=== PATIENT | male | born 1940 | race Caucasian/White ===

== ENCOUNTER 2020-01-29 08:53 | Observation (INO) | payer OTHER ==
[2020-01-24 11:06] LABS: BASOPHILS % 0.3 % (0.0-1.0); EOSINOPHILS # (AUTO) 0.5 (0.0-0.4); HEMATOCRIT 39.5 % (38.2-49.6); LYMPHOCYTES # (AUTO) 1.6 (1.0-3.2); LYMPHOCYTES % 17.7 % (18.0-39.1); MEAN CORPUSCULAR HGB CONC 32.9 g/dL (31-35); MONOCYTES % 10.8 % (4.4-11.3); NEUTROPHILS # (AUTO) 5.6 (2.1-6.9); NEUTROPHILS % 64.1 % (38.7-80.0); PLATELET COUNT 184 x10e3/uL (140-360); RED CELL DISTRIBUTION WIDTH 14.8 % (11.7-14.4)
[~2020-01-29] VITALS: Ht 167.6 cm; Wt 77.1 kg
[~2020-01-29 08:53] MED LIST: AMLODIPINE BESY10 MG PO; ATORVASTATIN CA20 MG PO; DITROPAN XL10 MG PO; IRON PO; METOPROLOL SUCC25 MG PO; MONTELUKAST SOD10 MG PO; PANTOPRAZOLE SO40 MG PO; SUCRALFATE1 GM PO; WARFARIN SODIUM3 MG PO
[2020-01-29 10:25] LABS: INR 1.3; PROTHROMBIN TIME 16.8 seconds (11.9-14.5)
[2020-01-29 10:26] LABS: PARTIAL THROMBOPLASTIN TIME 35.9 seconds (23.8-35.5)
[2020-01-29] MEDS ORDERED: LIDOCAINE HCL 2% LOCAL INJ 5 ML SDV VIAL INJ ONE (11:58)
[2020-01-29] MEDS ORDERED: PROPOFOL IV EMULSION 10 MG/ML 20 ML VIAL ONE (11:58)
[2020-01-29] MEDS ORDERED: GLUCAGON FOR INJ 1 MG VIAL ONE (11:58)
[2020-01-29 17:07] VITALS: BP 115/81
[2020-01-29 17:21] VITALS: BP 115/81
--- NOTE | 2020-01-29 17:24 | NUR ---
patient received via . see admit assess. sinus lex. Dr Casas and Dr Barr here to see patient. vitals stable with no distress.
--- NOTE | 2020-01-29 19:00 | NUR ---
RECEIVED BEDSIDE SHIFT REPORT FROM PREVIOUS NURSE. CALL LIGHT WITHIN REACH. PATIENT IN BED.
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
[2020-01-29 20:00] VITALS: BP 114/66
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
[2020-01-29 20:19] VITALS: BP 115/81
[2020-01-29 21:36] VITALS: BP 114/66
[2020-01-30] VITALS: BP 115/74
[2020-01-30 04:00] VITALS: BP 114/66
[2020-01-30 05:25] LABS: BASOPHILS % 0.5 % (0.0-1.0); EOSINOPHILS # (AUTO) 0.5 (0.0-0.4); EOSINOPHILS % 7.4 % (0.0-6.0); HEMATOCRIT 35.6 % (38.2-49.6); LYMPHOCYTES # (AUTO) 1.1 (1.0-3.2); LYMPHOCYTES % 17.5 % (18.0-39.1); MEAN CORPUSCULAR HEMOGLOBIN 31.4 pg (28-32); MEAN CORPUSCULAR HGB CONC 33.7 g/dL (31-35); MEAN CORPUSCULAR VOLUME 93.2 fL (81-99); MONOCYTES # (AUTO) 0.8 (0.2-0.8); MONOCYTES % 12.4 % (4.4-11.3); NEUTROPHILS # (AUTO) 3.8 (2.1-6.9); NEUTROPHILS % 61.4 % (38.7-80.0); PLATELET COUNT 176 x10e3/uL (140-360); RED BLOOD COUNT 3.82 x10e6/uL (4.3-5.7); RED CELL DISTRIBUTION WIDTH 14.7 % (11.7-14.4)
[2020-01-30 05:57] LABS: ALANINE AMINOTRANSFERASE 12 IU/L (0-55); ALBUMIN 3.4 g/dL (3.5-5.0); ALBUMIN/GLOBULIN RATIO 1.3 (0.8-2.0); ALKALINE PHOSPHATASE 80 IU/L (40-150); BLOOD UREA NITROGEN 15 mg/dL (7-26); BUN/CREATININE RATIO 15 (6-25); CALCIUM 8.4 mg/dL (8.4-10.2); CARBON DIOXIDE 24 mmol/L (22-29); CHLORIDE 107 mmol/L (98-107); CREATININE, SERUM 1.02 mg/dL (0.72-1.25); EST GLOMERULAR FILTRATION RATE > 60 ML/MIN (60-); GLUCOSE 92 mg/dL (74-118); SODIUM 139 mmol/L (136-145)
[2020-01-30 06:10] LABS: CHOL/HDL RATIO 5.3 (3.9-4.7)
--- NOTE | 2020-01-30 07:12 | NUR ---
GAVE BEDSIDE SHIFT REPORT TO ONCOMING NURSE. CALL LIGHT WITHIN REACH. PATIENT IN BED. HOURLY ROUNDING PERFORMED.
[2020-01-30] MEDS ORDERED: SUCRALFATE 1 GM TAB PO SCH (07:30)
[2020-01-30 08:19] VITALS: BP 125/68
[2020-01-30 08:27] VITALS: BP 125/68
[2020-01-30] MEDS ORDERED: ATORVASTATIN 20 MG TAB PO SCH (09:00)
[2020-01-30] MEDS ORDERED: PANTOPRAZOLE SOD 40 MG TABEC PO SCH (09:00)
[2020-01-30] MEDS ORDERED: MONTELUKAST SODIUM 10 MG TAB PO SCH (09:00)
[2020-01-30] MEDS ORDERED: AMLODIPINE BESYLATE 10 MG TAB PO SCH (09:00)
--- NOTE | 2020-01-30 14:43 | NUR ---
Right hand IV discontinued. No signs of infiltration noted. 2x2 gauze and coban placed. Taken via wheelchair to personal car. Accompanied by . AAOx3 to time, person, place. Respirations even and unlabored. Discharge instructions and all personal belongings taken with patient.
--- NOTE | 2020-02-04 20:38 | NUR ---
Discharge Summary Patient: Isak Fleming Admission date: 01/29/2020 Discharge date: 01/30/2020 Attending physician: Geovany Barr MD Consultation: Dr David Casas, Cardiology Admitting Diagnosis: symptomatic bradycardia, coronary artery disease s/p PCI 2002, Hypertension, Hyperlipidemia, history of stroke with right sided weakness, GERD, systolic congestive heart failure, mild aortic valve sclerosis without stenosis, mild mitral regurgitation, mild tricuspid regurgitation Discharge Diagnosis: symptomatic bradycardia, coronary artery disease s/p PCI 2002, Hypertension, Hyperlipidemia, history of stroke with right sided weakness, GERD, systolic congestive heart failure, mild aortic valve sclerosis without stenosis, mild mitral regurgitation, mild tricuspid regurgitation Procedures: None Hospital Course: Mr Fleming is an 79 yo M with PMH significant for CAD s/p PCI 2002 with stents, CVA with residual right sided weakness 2011, HTN, HLD, and GERD who is admitted for bradycardia after outpatient EGD. Patient presented to [facility] for elec tive outpatient EGD and colonoscopy to evaluate for nausea and vomiting symptoms. After procedure, patient became bradycardic to 47 with dizziness in PACU. Dr Casas was consulted for evaluation and decision was made to admit patient for observation. He takes Metoprolol 50mg and states he took his normal dose this morning and denies possibly taking an additional dose. Upon admission to the floor patient was no longer feeling dizzy. Monitored overnight on telemetry with no arrythmias noted and his bradycardia resolved. We held beta annamaria therapy during admission. TSH normal. TTE noted depressed EF 40-45% with mild aortic valve sclerosis without stenosis, mild mitral regurgitation, mild tricuspid regurgitation. His bradycardia resolved and it is thought this episode was caused by anesthesia. Patient discharged with instructions to follow up wit his head inspector, PCP, and with his GI physician. Physical Exam: Vitals: Temp: 98.4P:99 BP: 125/68RR: 20SpO2: 95% General Appearance: The patient is alert, oriented and in no acute distress. Appears euvolemic. Skin: Warm and hydrated without any rash. HEENT: Head is normocephalic, atraumatic. Nontender sinuses. Pupils are equal and reactive. The nares are patent. Oropharynx is moist and clear without lesions. Neck: Supple without lymphadenopathy. No JVD. Thyroid NV/REPORT WRITER Heart / Cardiovascular: Regular rate and rhythm. Normal S1 and S2 without S3/S4. No murmurs, rubs or gallops. Peripheral pulses symmetric +2. Respiratory / Chest: No crackles or wheezes are heard. Symmetric breath sounds. Preserved chest expansion. Abdomen: Soft, nontender, nondistended with good bowel sounds heard. No clinical organomegaly. Renal: There is no costovertebral angle tenderness. Extremities: Without cyanosis, clubbing or edema. Preserved ROM. Neurological: Gross nonfocal. Patient oriented x 3. Cranial nerves II - XII Grossly intact. +slight weakness to RUE and RLE; normal strength on left side Discharge medications: see medication reconciliation Discharge plan: Condition on discharge: good Activity: as tolerated Diet: cardiac diet Follow-up: follow up with your PCP, GI, and cardiology Time spent on discharge: 45 minutes
--- OUTSIDE RECORDS SUMMARY | 2020-02-07 17:16 | XMS REPORT | Continuity of Care Document ---
Author Author [facility] Organization [facility] Address [address] [place] [address] Phone Unavailable Care Team Providers Care Software Sales Manager Name Role Phone Alexa GOULD, Adelso PCP Problems Condition Name Condition Details Condition Category Status Onset Date Resolution Date Last Treatment Date Treating Clinician Comments Source Acute cystitis without hematuria Acute cystitis without hematuri a Disease Active 2018-12-29 00:00:00 [place] [facility] Pneumonia Pneumonia Disease Active 2018-12-29 00:00:00 Natan Delgado Allergies, Adverse Reactions, Alerts Allergy Name Allergy Type Status Severity Reaction(s) Onset Date Inacti ve Date Treating Clinician Comments Source Ciprofloxacin Propensity to adverse reactions to drug Active GI Intolerance 2018-12-26 00:00:00 Vomiting [place] [facility] Penicillin Propensity to adverse reactions to drug Active Hives 2017-05-23 00:00:00 [facility] Promethazine Propensity to adverse reactions to drug Active 2017-05-23 00:00:00 hallucinations [place] [facility] Family History Family Member Diagnosis Comments Start Date Stop Date Source Natural father Cancer [place] [facility] Natural mother Diabetes [place] [facility] Social History Social Habit Start Date Stop Date Quantity Comments Source History of tobacco use Current smoker Natan Delgado Sex Assigned At [facility] ro[place] Religion Cigarettes smoked current (pack per day) - Reported 00:00:00 2018-12-26 00:00:00 Natan Delgado Cigarette pack-years 2018-12-26 00:00:00 2018-12-26 00:00:00 Natan Delgado Tobacco use and exposure 2018-12-26 00:00:00 2018-12-26 00:00:00 Form er user Natan Delgado Alcohol intake 2018-12-26 00:00:00 2018-12-26 00:00:00 Current non-drinker of alcohol (finding) Natan Delgado Alcohol Comment 2017-05-26 00:00:00 2017-05-26 00:00:00 history Natan Delgado Smoking Status Start Date Stop Date Source Former smoker 2018-12-26 00:00:00 2018-12-26 00:00:00 Natan Delgdao Medications Ordered Medication Name Filled Medication Name Start Date Stop Da te Current Medication? Ordering Clinician Indication Dosage Frequency Signature (SIG) Comments Components Source ferrous sulfate 325 (65 FE) MG tablet 2018-12-29 10:33:48 Y es 325mg QD Take 325 mg by mouth daily with breakfast. Natan Delgado tamsulosin (FLOMAX) 0.4 mg capsule 2018-12-29 10:33:48 Yes .4mg QD Take 0.4 mg by mouth daily. Natan Delgado cyclobenzaprine (FLEXERIL) 10 mg tablet 2018-12-29 10:33:48 Yes 10mg Q.[id number] Take 10 mg by mouth 3 (three) times a da y as needed for muscle spasms. Natan Delgado acetaminophen-codeine (TYLENOL WITH CODEINE #3) 300-30 mg pe r tablet 2018-12-29 10:33:48 Yes acute pain 1{tbl} Q4H Take 1 tablet by mouth every 4 (four) hours as needed .Acute Pain. Nigel Delgado pantoprazole (PROTONIX) 40 MG EC tablet 2017-05-16 00:00:00 Yes 40mg QD Take 40 mg by mouth daily. Natan Angeles odangel sucralfate (CARAFATE) 1 gram tablet 2017-05-09 00:00:00 Yes 1g Q.5D Take 1 g by mouth 2 (two) times a day. Rajinder Delgado montelukast (SINGULAIR) 10 mg tablet 2017-05-04 00:00:00 Ye s 10mg QD Take 10 mg by mouth daily. Natan crawley warfarin (COUMADIN) 5 MG tablet 2017-05-03 00:00:00 Yes 5mg QD Take 5 mg by mouth daily. Natan Delgado metoprolol succinate XL (TOPROL-XL) 50 mg 24 hr tablet 2017-03-22 00:00:00 Yes 25mg QD Take 25 mg by mouth daily. Natan Delgado amLODIPine (NORVASC) 10 mg tablet 2017-03-22 00:00:00 Yes 10mg QD Take 10 mg by mouth daily. Natan Delgado atorvastatin (LIPITOR) 20 MG tablet 2017-02-15 00:00:00 Yes 20mg QD Take 20 mg by mouth nightly. Natan dumont Procedures This patient has no known procedures. Plan of Care Planned Activity Planned Date Details Comments Source Future Scheduled Test 2019-11-03 00:00:00 INFLUENZA VACCINE [code = INFLUENZA VACCINE] Natan Delgado Future Scheduled Test 2004-12-19 00:00:00 65+ PNEUMOCOCCAL V ACCINE (1 of 1 - PPSV23) [code = 65+ PNEUMOCOCCAL VACCINE (1 of 1 - PPSV23)] Natan Delgado Future Scheduled Test 1989-12-19 00:00:00 SHINGLES VACCINES (#1) [code = SHINGLES VACCINES (#1)] Natan Delgado Results This patient has no known results.
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
== END 2020-01-30 14:43 | disposition home or self-care (01) ==
LOC: OR 08:53 → PACU V 14:36 → MED/SURG 16:25
PROVIDERS: ADMIT Internal Medicine; ATTEND Internal Medicine
DX: Z12.11 Encounter for screening for malignant neoplasm of colon (principal); R00.1 Bradycardia, unspecified; I25.10 Atherosclerotic heart disease of native coronary artery without angina pectoris; I25.2 Old myocardial infarction; I69.351 Hemiplegia and hemiparesis following cerebral infarction affecting right dominant side; D12.0 Benign neoplasm of cecum; D12.3 Benign neoplasm of transverse colon; K29.50 Unspecified chronic gastritis without bleeding; K22.70 Barrett's esophagus without dysplasia; K21.00 Gastro-esophageal reflux disease with esophagitis, without bleeding; K57.30 Diverticulosis of large intestine without perforation or abscess without bleeding; K64.8 Other hemorrhoids; K44.9 Diaphragmatic hernia without obstruction or gangrene; I35.8 Other nonrheumatic aortic valve disorders; I34.0 Nonrheumatic mitral (valve) insufficiency; I07.1 Rheumatic tricuspid insufficiency; I10 Essential (primary) hypertension; E78.5 Hyperlipidemia, unspecified; Z88.0 Allergy status to penicillin; Z88.8 Allergy status to other drugs, medicaments and biological substances; Z01.810 Encounter for preprocedural cardiovascular examination; Z01.812 Encounter for preprocedural laboratory examination; Z11.59 Encounter for screening for other viral diseases; Z79.01 Long term (current) use of anticoagulants; Z95.5 Presence of coronary angioplasty implant and graft
CPT/HCPCS: 36415 ×3; 43239; 45384; 80053; 80061; 82948; 84443; 85025 ×2; 85610; 85730; 93005 ×3; 93306; G0378 ×2; J1610; J2001; J2704; S0164; U0002; 45378

== ENCOUNTER → 2022-02-09 | Day surgery (SDC) | payer OTHER ==
[2022-01-29 13:42] LABS: BASOPHILS % 0.4 % (0.0-1.0); EOSINOPHILS # (AUTO) 0.5 (0.0-0.4); HEMATOCRIT 39.3 % (38.2-49.6); HEMOGLOBIN 12.4 g/dL (14.0-18.0); LYMPHOCYTES # (AUTO) 1.5 (1.0-3.2); LYMPHOCYTES % 21.5 % (18.0-39.1); MEAN CORPUSCULAR HEMOGLOBIN 31.5 pg (28-32); MEAN CORPUSCULAR HGB CONC 31.6 g/dL (31-35); MEAN CORPUSCULAR VOLUME 99.7 fL (81-99); MONOCYTES # (AUTO) 0.7 (0.2-0.8); NEUTROPHILS # (AUTO) 3.9 (2.1-6.9); NEUTROPHILS % 57.9 % (38.7-80.0); PLATELET COUNT 202 x10e3/uL (140-360); RED BLOOD COUNT 3.94 x10e6/uL (4.3-5.7); RED CELL DISTRIBUTION WIDTH 15.7 % (11.7-14.4)
[~2022-02-09] MED LIST changes: +LIDOCAINE HCL 2% LOCAL INJ 5 ML SDV VIAL INJ ONE; +PROPOFOL IV EMULSION 10 MG/ML 20 ML VIAL ONE
[2022-02-09 14:10] LABS: INR 1.02; PARTIAL THROMBOPLASTIN TIME 31.4 seconds (23.8-35.5); PROTHROMBIN TIME 14.3 seconds (11.9-14.5)
[2022-02-09 17:20] VITALS: BP 114/67
== END | disposition home or self-care (01) ==
LOC: OR 13:13
PROVIDERS: ATTEND Internal Medicine Gastroenterology
DX: K22.70 Barrett's esophagus without dysplasia (principal); K29.50 Unspecified chronic gastritis without bleeding; K31.A15 Gastric intestinal metaplasia without dysplasia, involving multiple sites; K44.9 Diaphragmatic hernia without obstruction or gangrene; K21.9 Gastro-esophageal reflux disease without esophagitis; D64.9 Anemia, unspecified; I10 Essential (primary) hypertension; E78.5 Hyperlipidemia, unspecified; N40.0 Benign prostatic hyperplasia without lower urinary tract symptoms; I25.10 Atherosclerotic heart disease of native coronary artery without angina pectoris; I25.2 Old myocardial infarction; R00.1 Bradycardia, unspecified; Z88.0 Allergy status to penicillin; Z88.8 Allergy status to other drugs, medicaments and biological substances; Z01.810 Encounter for preprocedural cardiovascular examination; Z01.812 Encounter for preprocedural laboratory examination; Z79.01 Long term (current) use of anticoagulants; Z79.899 Other long term (current) drug therapy; Z95.5 Presence of coronary angioplasty implant and graft; Z86.73 Personal history of transient ischemic attack (TIA), and cerebral infarction without residual deficits
CPT/HCPCS: 36415 ×2; 43239; 85025; 85610; 85730; 88305; 88342; 93005; J2001; J2704; 88312